=== PATIENT | female | born 1990 | race Caucasian/White ===

== ENCOUNTER → 2016-07-26 | Day surgery (SDC) | payer OTHER ==
[~2016-07-26] MED LIST: 0.9 % SODIUM CHLORIDE 10 ML DISP.SYRIN. IV PRN; 0.9 % SODIUM CHLORIDE 50 ML VIAL. IJ ONE; BUPIVACAINE-EPI 0.25%-1:200000 50 ML VIAL. IJ ONE; BUPIVACAINE-EPI 0.25%-1:200000 50 ML VIAL. ONE; CALCIUM CARBONATE 500 MG TAB.CHEW PO PRN; CEFOXITIN 1GM IVPB FOR OMNI 50 ML IV ONE; DESFLURANE 61 TO 120 MINUTES IH ONE; DEXAMETHASONE SOD PHOS 20 MG/5 ML VIAL. ONE; DIPHENHYDRAMINE 50 MG/ML VIAL IV PRN; DIPHENHYDRAMINE 50 MG/ML VIAL ONE; DIPHENHYDRAMINE HCL 25 MG CAPSULE PO PRN; FAMOTIDINE 20 MG/2 ML VIAL ONE; FENTANYL PF 100 MCG/2 ML VIAL. IV PRN; FENTANYL PF 100 MCG/2 ML VIAL. ONE; GABA-586 PO; GLYCOPYRROLATE 1 MG/5 ML VIAL. ONE; HYDROCODONE/APAP 5/325MG TABLET. PO PRN; HYDROMORPHONE 2 MG/ML VIAL. IV PRN; IBUP-1027 PO; IV RINGERS,LACTATED 1000ML 1,000 ML IV SCH; KETOROLAC 60 MG/2 ML SYRINGE FOR OR. ONE; LIDOCAINE 1% 1 ML SYRINGE. ID PRN; LIDOCAINE 2% 100 MG/5 ML DISP.SYRIN. ONE; MAG HYDROX/ALUMINUM HYD/SIMETH 30 ML ORAL.SUSP PO PRN; MELO-156 PO; METHYLENE BLUE 1% 1 ML VIAL. IJ ONE; METHYLENE BLUE 1% 1 ML VIAL. ONE; MIDAZOLAM HCL 2 MG/2 ML VIAL. ONE; MINERAL OIL/PETROLATUM,WHITE OPHTH OINT 3.5GM TUBE. ONE; MORPHINE SULFATE 2 MG/ML DISP.SYRIN. IV PRN; NALOXONE 0.4 MG/ML VIAL. IV PRN; NAPR550T3 PO; NEOSTIGMINE METHYLSULFATE 5 MG/5 ML SYRINGE. ONE; ONDANSETRON PF 4 MG/2 ML VIAL. IV PRN; ONDANSETRON PF 4 MG/2 ML VIAL. ONE; OXYC-323 PO; OXYCODONE/APAP 5/325 TABLET. PO PRN; PHENYLEPHRINE in 0.9% NACL PF 1 MG/10 ML DISP.SYRIN. IV ONE; PROCHLORPERAZINE 10 MG/2 ML VIAL. IV PRN; PROG200C7 PO; PROPOFOL 20 ML IV ONE; ROCURONIUM 50 MG/5 ML VIAL. ONE; SCOPOLAMINE 1.5MG PATCH. TD ONE; SILVER NITRATE STICK TP ONE; SIMETHICONE 80 MG TAB.CHEW PO PRN
[2016-07-26 09:00] LABS: NEG OBC UR NEG; POS OBC UR POS
[2016-07-26] MEDS: FENTANYL PF 100 MCG/2 ML VIAL. IV PRN ×2 (09:44→09:55)
--- NOTE | 2016-07-26 09:47 | PDOC ---
BRIEF OPERATIVE NOTE Date: Jul 26, 2016 Pre-Op Diagnosis pelvic pain, known endometriosis and pelvic adhesive disease Post-Op Diagnosis same plus left ovarian cyst Procedure Performed operative laparoscopy, lysis of adhesions, vapo endometriosis, left ovarian cystectomy, attempted chromotubation Surgeon Dr. Mendy Bhardwaj Anesthesiologist see anesthesia records Anesthesia Type: General Blood Loss 50cc IV Fluid 1500cc Urine Output 400cc Specimens Obtained ovarian cyst wall, but not sent to pathology Findings severely RV uterus, endometriosis on anterior bladder peritoneum, attenuation of uterus to left sidewall with adhesions in front of round pulling it over, right ovary adhesed to posterior uterus, enlarged left ovarian hemorrhagic cyst , endometriosis in posterior cul-de-sac, on anterior bladder peritoneum, right and left abdominal sidewalls, adhesions of omentum near cecum/appendix to right sidewall, 2 posterior ruy masters windows stage 3 endometriosis Complications none Additional Remarks [id number] MENDY BHARDWAJ MD Jul 26, 2016 09:47
[2016-07-26 12:00] VITALS: BP 90/50
--- NOTE | 2016-07-26 14:43 | OP ---
DATE OF SURGERY: 07/26/2016 PREOPERATIVE DIAGNOSES: Pelvic pain, known endometriosis with pelvic adhesive disease. POSTOPERATIVE DIAGNOSES: Pelvic pain, known endometriosis with pelvic adhesive disease, enlarged left ovarian cyst. PROCEDURE PERFORMED: Operative laparoscopy, lysis of adhesions, vaporization of endometriosis, left ovarian cystectomy and attempted chromotubation. SURGEON: Brayden Bhardwaj MD. PRODUCTION CONTROL TECHNOLOGIST: OR personnel. ANESTHESIA: General. ESTIMATED BLOOD LOSS: 50 mL. URINE OUTPUT: 400 mL. IV FLUIDS: 1500 mL of crystalloid. SPECIMEN OBTAINED: Left ovarian cyst wall, but it was just a hemorrhagic cyst and it was not sent to pathology. FINDINGS: Severely retroverted uterus, attenuation of the uterus to the left sidewall, in front of the round ligament between the round and the bladder, pulling it that way with adhesions in front of the round, right ovary adhesed to the posterior midline of the uterus and enlarged left hemorrhagic ovarian cyst, endometriosis on the anterior bladder peritoneum, posterior cul-de-sac. There was some on the right ureter and great vessel going down. That was the one I could not safely cut or burn. There was some on the right and left pelvic side alberto, adhesions of the omentum on the right abdominal wall, kind of midway up, not to the liver, but well above the pelvis, near the cecum and appendix and then there were 2 posterior Sivakumar-Masters windows. This was definitely stage 3 endometriosis. COMPLICATIONS: None. DESCRIPTION OF PROCEDURE: This patient was taken to the operating room where general anesthesia was placed. The patient was placed in a dorsal lithotomy position in [facility]. The patient's abdomen and vagina were prepped and draped in the normal sterile fashion and initially a straight cath urine was done. A bivalve speculum was placed in the patient's vagina. A single tooth tenaculum was used to grasp the anterior lip of the cervix. The Valtchev uterine manipulator was placed through the endocervical os, locked on the single tooth tenaculum and the bivalve speculum was then removed. Top gloves were discarded and changed. Attention was then turned to the abdomen where a small infraumbilical skin incision was made over the existing scar. The curved Estela was used to dissect through the subcuticular layer to the fascia and it was felt that there was an opening. The 5 mm Visiport was used to confirm this and I got in the abdomen immediately. Opening patient pressure was 2 mmHg. Direct abdominal placement was confirmed via the laparoscope. Carbon dioxide gas was used to then appropriately insufflate the abdominal cavity to maintain a pressure of 15 mmHg. The patient was placed in Trendelenburg position. A second 5 mm atraumatic disposable port was placed on her scar in the suprapubic area under direct visualization without difficulty. A Maryland was used for all the above findings and to probe around the abdominal cavity to find all this. Eventually, a right lower quadrant 5 mm port was placed as well for the LigaSure Advance to be put in to cauterize and help take down all the adhesions. This was done under direct visualization atraumatically. I did move the scope to the right lower quadrant port just to look at the umbilical port and make sure it was okay and it was. It was free of all adhesions and not bleeding. So I checked all three port just to be sure. Initially, I started on the right sided adhesions. I took this down with the Maryland, with the grasper just peeling it down. Then I found her normal appendix under that adhesion. So once it was taken down and freed, I did find the appendix. There was some endometriosis up from the infundibulopelvic ligament on the right sidewall. This area could be cauterized and burned safely. There was a large lesion on the right side over the ureter and great vessel that could not be. The bladder started to rapidly fill again. So I did have them insert a catheter for the rest because I could see endometriosis on the anterior bladder peritoneum that I wanted to take care of. So after they were able to insert a catheter, I did take care of the superficial lesions on the anterior bladder peritoneum as well. I took down that attenuation with the monopolar tip pulling the uterus over to the left sidewall and freed it up some. In the posterior Sivakumar-Masters window area, I did try to take off some of the attenuation of it and open it up a little bit, but I could not take it down. There were 2 areas and they were very attenuated under the uterosacrals. I did cauterize all the posterior endometriosis in the cul-de-sac and I did try to take off some of the attenuation in the middle where it was pulling towards the midline on both Sivakumar-Masters windows, but they are still there. But I did take off some of the attenuation and cauterize all the endometriosis in the posterior cul-de-sac. I did take care of the left. There were some left endometriosis, kind of half way up again, kind of up towards the abdominal wall. The endometriosis was cauterized in this area as well. There were no adhesions, but there was endometriosis that was cauterized. The final thing, I went ahead and opened up the ovarian cyst. It was a hemorrhagic cyst and used the Maryland to peel off the cyst wall from the inside. This was removed and passed off in multiple bites. It was in a Ray-Sary and they did not know I wanted to send it. It was benign, so it was not a big deal. It was not being sent to pathology, but I did examine it throughout the case and make sure there was no any active bleeding once this cyst wall was peeled off. There was a normal left ovary remaining, but I did peel off and remove the large hemorrhagic cyst wall. The left upper quadrant was clear. I did copious irrigation below to make sure everything was hemostatic and dry because there was some bloody fluid in the cul-de-sac after opening up that left ovarian cyst of course and everything was. At this point, I did try to attempt diluting methylene blue and injectable saline. I could see fimbriae and the tubes looked good, but since the right ovary was adhesed and the left ovary had cysts as well, just to look at it and make sure it was okay, but it kept draining out vaginally and it did not make a feel with the cervix. So I did an attempted chromotubation, but I never got them to really fill and spill, but I did put water in there and I could watch the fimbria float and the tubes did look okay, but she had severely retroverted uterus and like I said I took down the attenuation of the uterus to the left sidewall. I peeled off the right tube and ovary off the uterus. I did a left ovarian cystectomy and then took down the right sided adhesions and all the endometriosis that I could safely burn. The endometriosis that I know is still remaining is definitely on the right vessel and ureter in the pelvis and I am sure there is some microscopic disease that we could not see and get. We did get large amount of endometriosis and adhesive disease. Once this was done and copious irrigation revealed hemostasis and clear fluid, the suprapubic and right lower quadrant ports were taken out under direct visualization. These were hemostatic. Gas was released from the umbilical port. All port sites were closed with 4-0 nylon at the skin and injected with a total of 10 mL of local. The bottom instruments were taken out. There was some slight bleeding from the tenaculum site. Silver nitrate was used to place over this with excellent results. BRAYDEN BHARDWAJ MD DR: YELENA/john JOB#: [id number] / [id number]
== END | disposition home or self-care (01) ==
LOC: SURG 06:05
PROVIDERS: ATTEND Obstetrics & Gynecology
DX: N80.9 Endometriosis, unspecified (principal); N83.202 Unspecified ovarian cyst, left side; Z72.89 Other problems related to lifestyle
CPT/HCPCS: 58662; 81025; C1769; J0694; J0780; J1100; J1200; J1885; J2250; J2370; J2405; J2704; J2710; J3010; J3490; J7030; J7120; Q9968; S0028

== ENCOUNTER → 2018-02-21 | Outpatient (CLI) | payer OTHER ==
[2016-07-26 12:00] VITALS: BP 90/50
[~2018-02-21] MED LIST changes: -0.9 % SODIUM CHLORIDE 10 ML DISP.SYRIN. IV PRN; -0.9 % SODIUM CHLORIDE 50 ML VIAL. IJ ONE; -BUPIVACAINE-EPI 0.25%-1:200000 50 ML VIAL. IJ ONE; -BUPIVACAINE-EPI 0.25%-1:200000 50 ML VIAL. ONE; -CALCIUM CARBONATE 500 MG TAB.CHEW PO PRN; -CEFOXITIN 1GM IVPB FOR OMNI 50 ML IV ONE; -DESFLURANE 61 TO 120 MINUTES IH ONE; -DEXAMETHASONE SOD PHOS 20 MG/5 ML VIAL. ONE; -DIPHENHYDRAMINE 50 MG/ML VIAL IV PRN; -DIPHENHYDRAMINE 50 MG/ML VIAL ONE; -DIPHENHYDRAMINE HCL 25 MG CAPSULE PO PRN; -FAMOTIDINE 20 MG/2 ML VIAL ONE; -FENTANYL PF 100 MCG/2 ML VIAL. IV PRN; -FENTANYL PF 100 MCG/2 ML VIAL. ONE; -GLYCOPYRROLATE 1 MG/5 ML VIAL. ONE; -HYDROCODONE/APAP 5/325MG TABLET. PO PRN; -HYDROMORPHONE 2 MG/ML VIAL. IV PRN; -IV RINGERS,LACTATED 1000ML 1,000 ML IV SCH; -KETOROLAC 60 MG/2 ML SYRINGE FOR OR. ONE; -LIDOCAINE 1% 1 ML SYRINGE. ID PRN; -LIDOCAINE 2% 100 MG/5 ML DISP.SYRIN. ONE; -MAG HYDROX/ALUMINUM HYD/SIMETH 30 ML ORAL.SUSP PO PRN; -MELO-156 PO; +MELO7.5T29 PO; -METHYLENE BLUE 1% 1 ML VIAL. IJ ONE; -METHYLENE BLUE 1% 1 ML VIAL. ONE; -MIDAZOLAM HCL 2 MG/2 ML VIAL. ONE; -MINERAL OIL/PETROLATUM,WHITE OPHTH OINT 3.5GM TUBE. ONE; -MORPHINE SULFATE 2 MG/ML DISP.SYRIN. IV PRN; -NALOXONE 0.4 MG/ML VIAL. IV PRN; +NAPR-677 PO; -NAPR550T3 PO; -NEOSTIGMINE METHYLSULFATE 5 MG/5 ML SYRINGE. ONE; -ONDANSETRON PF 4 MG/2 ML VIAL. IV PRN; -ONDANSETRON PF 4 MG/2 ML VIAL. ONE; -OXYCODONE/APAP 5/325 TABLET. PO PRN; -PHENYLEPHRINE in 0.9% NACL PF 1 MG/10 ML DISP.SYRIN. IV ONE; -PROCHLORPERAZINE 10 MG/2 ML VIAL. IV PRN; +PROG200C15 PO; -PROG200C7 PO; -PROPOFOL 20 ML IV ONE; -ROCURONIUM 50 MG/5 ML VIAL. ONE; -SCOPOLAMINE 1.5MG PATCH. TD ONE; -SILVER NITRATE STICK TP ONE; -SIMETHICONE 80 MG TAB.CHEW PO PRN
--- NOTE | 2018-02-21 16:18 | RAD ---
CT of the abdomen and pelvis without contrast. 02/21/2018 12:30 PM Indication: L FLANK PAIN HEMATURIA X MONTHS PREV SX: ENDOMETROSIS C SECTION NO CONTRAST NO PREV Comparison Study: None. Technique: Multidetector CT imaging of the abdomen pelvis is obtained without administration of contrast. Findings: The visualized bilateral lung bases are unremarkable. The liver, spleen, bilateral adrenal glands, gallbladder, and pancreas have an unremarkable noncontrast enhanced appearance. There is a 3 mm nonobstructing calculus in the mid left kidney. There is a punctate nonobstructing calculus in the inferior left kidney. There is no hydronephrosis or obstructive uropathy on the right left. No evidence of ureteral stone is seen. There is a 2 mm nonobstructing stone in the mid right kidney. No other renal calculi are seen in the right. No evidence of hydronephrosis or obstructive uropathy is seen on the right. There is no significant free fluid or free air in the abdomen or pelvis. There is no evidence of bowel obstruction or significant inflammatory change involving the bowel.. The appendix is well visualized and grossly normal. There is no acute osseous abnormality identified. Impression: 1. Bilateral nephrolithiasis, as described above. No evidence of acute obstructive uropathy is seen. 2. No evidence of acute intra-abdominal abnormality is identified Electronically signed by: Flip Rodríguez MD (02/21/2018 4:14 PM) [id number]
== END | disposition home or self-care (01) ==
LOC: CT 14:12
PROVIDERS: ATTEND Family Medicine
DX: N20.0 Calculus of kidney (principal); I10 Essential (primary) hypertension
CPT/HCPCS: 74176

== ENCOUNTER → 2018-05-13 | Outpatient (CLI) | payer OTHER ==
[2016-07-26 12:00] VITALS: BP 90/50
[~2018-05-13] MED LIST changes: -GABA-586 PO; +GABA300C18 PO; -OXYC-323 PO; +OXYC1TAB15 PO
--- NOTE | 2018-05-13 15:41 | RAD ---
KUB without comparison for kidney stones, bilateral. FINDINGS: There is a nonobstructive nonspecific bowel gas pattern. No radiopaque calculi are identified save for a tiny phleboliths in the pelvis. There is a subtle angular rotary curvature of the upper lumbar spine. No other osseous abnormality. IMPRESSION: 1. Nonobstructive nonspecific bowel gas pattern. 2. No radiopaque genitourinary calculi. Electronically signed by: Baldomero Arshad MD (05/13/2018 3:37 PM) [id number]
== END | disposition home or self-care (01) ==
LOC: RAD 12:52
PROVIDERS: ATTEND Urology
DX: N20.0 Calculus of kidney (principal)
CPT/HCPCS: 74018

== ENCOUNTER → 2018-08-29 | Outpatient (CLI) | payer OTHER ==
[2016-07-26 12:00] VITALS: BP 90/50
--- NOTE | 2018-08-29 16:31 | RAD ---
PELVIS W/TV History: Pelvic pain Comparison: None. Findings: Multiple transabdominal sonographic images of pelvis are submitted. Uterus measured 9.7 x 5.3 x 6.6 m. Endometrium measured 1.6 cm in thickness. Left ovary measured 3.4 x 1.9 x 2.9 cm with normal low resistance vascularity. Right ovary measured 4.6 x 2.8 x 4.2 cm. There is a hypoechoic lesion of the right ovary about 3.6 x 2.2 x 3.4 cm in size. There is normal low resistance vascularity of the right ovary. Transvaginal ultrasound: Multiple transvaginal sonographic images of the pelvis are submitted. Endometrium measures about 1.7 cm in thickness, possibly some associated hypervascularity more anteriorly. No free fluid is demonstrated. Left ovary measured 1.4 x 1.9 x 3.2 cm, normal low resistance vascularity. Right ovary measured 4 x 3.3 x 2.8 cm with normal low resistance vascularity. There is a nearly anechoic lesion of the right ovary about 3.2 x 1.9 x 2.3 cm in size, no associated vascularity on color Doppler imaging. Impression: 1. Endometrium is thickened up to 1.6 cm with possible increased vascularity more anteriorly. Findings could be seen with hyperplasia, neoplasm not excludable. 2. There is a right ovarian cyst, up to 3.2 cm. There is no free fluid. Electronically signed by: Blaze Robison MD (08/29/2018 4:29 PM) [facility]
== END | disposition home or self-care (01) ==
LOC: US 15:35
PROVIDERS: ATTEND Family Medicine
DX: N83.201 Unspecified ovarian cyst, right side (principal)
CPT/HCPCS: 76830; 76856

== ENCOUNTER 2018-12-29 10:12 | Day surgery (SDC) | payer OTHER ==
[~2018-12-29] VITALS: Ht 157.5 cm; Wt 49.0 kg
[~2018-12-29 10:12] MED LIST changes: +FLUT9.9S NS; +HYDROmorphone 2 MG/ML VIAL IV PRN; +IV RINGERS,LACTATED 1000ML 1,000 ML IV SCH; +LIDOCAINE 1% PF 2 ML VIAL. ID PRN; +MORPHINE SULFATE 2 MG/ML VIAL. IV PRN; +MULT1TAB52 PO; +ONDANSETRON PF 4 MG/2 ML VIAL. IV PRN; +PROCHLORPERAZINE 10 MG/2 ML VIAL. IV PRN; +TRAM50TA PO; +fentaNYL PF VIAL 100 MCG/2 ML VIAL IV PRN
[2018-12-29] MEDS ORDERED: BUPIVACAINE-EPI 0.25%-1:200000 MPF 30 ML VIAL. ONE (10:18)
[2018-12-29] MEDS ORDERED: SURGICEL HEMOSTAT 4X8 EACH. ONE (10:18)
[2018-12-29] MEDS ORDERED: SCOPOLAMINE 1.5MG PATCH. TD ONE (10:45)
[2018-12-29] MEDS ORDERED: PROPOFOL 20 ML IV ONE (11:43)
[2018-12-29] MEDS ORDERED: ONDANSETRON PF 4 MG/2 ML VIAL. ONE (11:43)
[2018-12-29] MEDS ORDERED: DEXAMETHASONE SOD PHOS 4 MG/ML VIAL ONE (11:43)
[2018-12-29] MEDS ORDERED: fentaNYL PF VIAL 100 MCG/2 ML VIAL ONE ×3 (11:44→13:49)
[2018-12-29] MEDS ORDERED: ROCURONIUM 50 MG/5 ML VIAL. ONE (11:44)
--- NOTE | 2018-12-29 13:50 | PDOC ---
BRIEF OPERATIVE NOTE Date: Dec 29, 2018 Pre-Op Diagnosis 1. Endometriosis 2. CPP 3. ROV Cyst Post-Op Diagnosis Same Procedure Performed LPSC Resection Endometriosis and ROV Cystectomy Surgeon Dr. 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
--- NOTE | 2018-12-29 13:55 | DISCH ---
DISCHARGE INSTRUCTIONS Condition on Discharge Condition on Discharge: Stable Activity After Discharge Activity Instructions for Disc: Activity as tolerated Lifting Instructions after Dis: No heavy lifting Driving Instructions after Dis: Do not drive today Diet after Discharge Diet after Discharge: Regular Contacting the DRSheron after DC Call your doctor for: If your condition worsens Follow-Up Follow up with: Dr. Boyd in 1 week MARTI BYOD Jr, MD Dec 29, 2018 13:55
[2018-12-29] MEDS ORDERED: oxyCODONE/APAP 5/325 1 TAB TABLET PO ONE ×2 (14:30)
--- NOTE | 2018-12-29 14:52 | OP ---
DATE OF SURGERY: PREOPERATIVE DIAGNOSES: 1. Endometriosis. 2. Chronic pelvic pain. 3. Right ovarian cyst. POSTOPERATIVE DIAGNOSES: 1. Endometriosis. 2. Chronic pelvic pain. 3. Right ovarian cyst. PROCEDURE: Laparoscopic resection of endometriosis and right ovarian cystectomy. SURGEON: Dr. Boyd. AUTO MACHINIST: Dinesh. ANESTHESIA: General anesthesia. ESTIMATED BLOOD LOSS: 10 mL. COMPLICATIONS: None. FINDINGS: Endometriosis, right ovarian cyst 4 cm size, normal fallopian tubes bilaterally and normal left ovary. SUMMARY: A 28-year-old 2, para 2 with history of chronic pelvic pain as well as endometriosis on the pelvic ultrasound demonstrated a right ovarian cyst of 4 cm size. The patient was counseled on the risks, benefits and expectation of surgical resection of endometriosis as well as right ovarian cystectomy and voiced clear understanding to proceed. DESCRIPTION OF PROCEDURE: The patient was taken to surgery suite and placed in dorsal lithotomy position. The patient was prepped with Betadine solution for vaginal prep and ChloraPrep for abdominal prep. After adequate anesthesia, a bivalve speculum was placed vaginally and anterior lip of the cervix grasped with single tooth tenaculum. The uterine acorn manipulator was then placed. The bivalve speculum was removed. Attention was now placed on abdomen. A small transverse skin incision was made just below the umbilicus with the scalpel. The Veress needle was then placed through the infraumbilical incision site. The abdomen was allowed to insufflate up to 1.5 liters CO2 gas. Veress needle was then removed, 5 mm trocar was placed. Scope was positioned. Uterus appeared normal size. Fallopian tubes appeared normal bilaterally. The left ovary appeared normal. Right ovary demonstrated 4 cm simple cyst. There was endometriosis noted in the anterior cul-de-sac as well as the posterior cul-de-sac and the anterior cul-de-sac was located near the bladder pillars as well as in the right and left lower quadrant pelvis as well as in the posterior pelvis. There was also endometriosis noted next to the right ovary that was actually on the peritoneal wall. All the specimens were labeled as the way they were removed from. Two additional incisions made in the left lower quadrant, in which 5 mm trocars were placed. An additional incision was made 2 fingerbreadths above the pubic symphysis at the midline in which an 11 mm trocar was placed with aid of [employer] graspers and combination of EndoShears and the Harmonic scalpel. The endometriosis lesions were excised making sure that we maintain good hemostasis throughout the process. There was no injury to the bladder nor any major vessels. Once these areas were excised, the right ovarian cyst was then incised with EndoShears and the fluid was drained with the suction manager banking. The cyst wall was excised using EndoShears. The remainder of the right ovarian cyst wall was fulgurated using monopolar cautery. The area was hemostatic. Suction irrigation was utilized to verify good hemostasis. A small amount of normal saline was left in the posterior cul-de-sac. The trocars were then removed under direct visualization. The abdomen was allowed to deflate as much as possible along with mechanical manipulation. The suprapubic incision site was closed at the fascial layer using 2-0 Vicryl suture in [id number] manner. The four skin incisions were reapproximated using 4-0 Vicryl suture in subcuticular manner. A 0.25% Marcaine with epinephrine was injected at each incision site. The uterine acorn manipulator and single tooth tenaculum were then removed. The patient tolerated the procedure well and was taken to recovery room in stable condition. Sponge and needle count correct x 3. MARTI BOYD MD DR: KWAKU/john JOB#: [id number] / [id number]
[2018-12-29 16:33] VITALS: BP 101/58
--- NOTE | 2018-12-30 17:06 | PATHOLOGY ---
[facility] Accession Number: [id number] . 01 Material submitted: . PART A: bladder - PERITONEAL BIOPSY LEFT BLADDER PILAR PART B: bladder - BLADDER PERITONEUM PART C: peritoneum - RIGHT PERITONEAL BLADDER. Modifiers: right PART D: peritoneum - RIGHT PELVIC PERITONEAL . Modifiers: right PART E: peritoneum - POSTERIOR CULDESAC #1 PERITONEAL BIOPSY. Modifiers: posterior PART F: ovary - RIGHT PARA OVARIAN PERITONEAL BIOPSY. Modifiers: right PART G: ovary - RIGHT OVARIAN CYST. Modifiers: right PART H: ovary - RIGHT OVARIAN CYST WALL. Modifiers: right . 01 Clinical history: . Endometriosis, pelvic pain . 02 Diagnosis: A. Peritoneal biopsy, left bladder pilar: - Focal congestion and mild chronic inflammation. . B. Bladder peritoneum biopsy #1: - Focal foreign body giant cell reaction. . C. Right peritoneal bladder biopsy: - Focal foreign body giant cell reaction. . D. Right pelvic peritoneal biopsy: - Focal foreign body giant cell reaction. . E. Posterior cul-de-sac #1 peritoneal biopsy: - Focal endometrosis and focal foreign body giant cell reaction. . F. Right para-ovarian peritoneal biopsy: - Focal endometriosis. . G. Right ovarian cyst biopsy: - Segment of mesothelial-lined fibromuscular tissue showing focal endometriosis and foreign body giant cell reaction. . H. Right ovarian cyst wall: - Partially luteinized follicular cyst. (PATELM:venita; 12/30/2018) MBR/12/30/2018 . 02 Comment: The foci of foreign body giant cell reaction contain black particulate material, suggestive of previous laser effect. There is no evidence of malignancy. (CARLOS:venita; 12/30/2018) . 02 Electronically signed: . Lenonx Rios MD, Pathologist NPI- [id number] . 01 Gross description: . A. The specimen is received in formalin, labeled "Manuela Hernandez, peritoneal biopsy left bladder pillar", is an elongated, irregular hill-pink soft tissue measuring 2.0 x 0.5 x 0.1 cm, serially sectioned and entirely submitted in A1. . B. The specimen is received in formalin, labeled "Manuela Hernandez, bladder peritoneum biopsy #1", is an elongated, irregular hill-pink soft tissue measuring 1.2 x 0.3 x 0.1 cm, bisected and entirely submitted in B1. . C. The specimen is received in formalin, labeled "Manuela Hernandez, right peritoneal bladder biopsy", is an elongated hlil-pink rubbery tissue measuring 1.4 x 0.6 x 0.1 cm, margin inked black, serially sectioned and entirely submitted in C1. . D. The specimen is received in formalin, labeled "Manuela Hernandez, right pelvic peritoneal biopsy", is an elongated hill-pink rubbery tissue measuring 1.5 x 0.5 x 0.1 cm, margin inked black, serially sectioned and entirely submitted in D1. . E. The specimen is received in formalin, labeled "Manuela Hernandez, posterior cul-de-sac #1 peritoneal biopsy", is an irregular fragment of hill-pink rubbery tissue measuring 1.7 x 1.4 x 0.1 cm, margin inked black, serially sectioned and entirely submitted in E1. . F. The specimen is received in formalin, labeled "Manuela Hernandez, right paraovarian peritoneal biopsy", is an irregular hill-pink rubbery tissue measuring 2.8 x 1.2 x 0.2 cm, margin inked black, serially sectioned and entirely submitted in F1. . G. The specimen is received in formalin, labeled "Manuela Hernandez, right ovarian cyst", is an irregular fragment of hill-yap soft tissue measuring 1.0 x 0.7 x 0.1 cm, margin inked black, trisected and entirely submitted in G1. . H. The specimen is received in formalin, labeled "Manuela Hernandez, right ovarian cyst wall", is a hill-pink, membranous tissue measuring 2.5 x 1.5 x 0.1 cm, margin inked black, serially sectioned and entirely submitted in H1. (SWS; 12/29/2018) SHS/SHS . 02 Pathologist provided ICD-10: K65.9, N80.3, N80.1, N83.01 . 02 CPT . 885802, 425254, [id number], 191268, 559646, [id number], [id number], [id number] Specimen Comment: A courtesy copy of this report has been sent to Specimen Comment: [phone]. Specimen Comment: Report sent to Performed at: 01 [facility] [address], [place] [id number] MD Kaden Horta MD Phone: [phone] Performed at: 02 [facility] [address] [place], [place] [id number] MD Lennox Rios MD Phone: [phone]
== END 2018-12-29 16:50 | disposition home or self-care (01) ==
LOC: SURG 10:12
PROVIDERS: ATTEND Obstetrics & Gynecology
DX: N80.1 Endometriosis of ovary (principal); N83.201 Unspecified ovarian cyst, right side; K65.9 Peritonitis, unspecified; F41.9 Anxiety disorder, unspecified; Z98.890 Other specified postprocedural states
CPT/HCPCS: 58662; 81025; 88305; A7015; J0690; J0780; J1100; J2405; J2704; J3010; J7030